=== PATIENT | female | born 1985 | race Caucasian/White ===

== ENCOUNTER 2017-08-02 20:30 | Emergency (ER) | payer MEDICAID ==
[~2017-08-02] VITALS: Ht 170.2 cm; Wt 88.5 kg
[2017-08-02 20:45] VITALS: BP 123/73
[2017-08-02] MEDS ORDERED: TETanus/Pertussis (Acell)/Diphther VAC/PF (Tdap-Adult) 0.5ml syringe IM ONE (20:55)
== END 2017-08-02 21:22 | disposition home or self-care (01) ==
LOC: ER 20:30
DX: S91.131A Puncture wound without foreign body of right great toe without damage to nail, initial encounter (principal); G43.909 Migraine, unspecified, not intractable, without status migrainosus; Z88.8 Allergy status to other drugs, medicaments and biological substances; W22.8XXA Striking against or struck by other objects, initial encounter; Y93.89 Activity, other specified; Y92.89 Other specified places as the place of occurrence of the external cause; Y99.8 Other external cause status
CPT/HCPCS: 90471; 90715; 99283

== ENCOUNTER 2018-01-01 14:43 | Emergency (ER) | payer MEDICAID ==
[~2018-01-01] VITALS: Ht 170.2 cm; Wt 86.1 kg
[2018-01-01 14:54] VITALS: BP 142/84
[2018-01-01] MEDS ORDERED: PENI500T2 PO (15:11)
== END 2018-01-01 15:20 | disposition home or self-care (01) ==
LOC: ER 14:43
DX: R68.84 Jaw pain (principal); K08.89 Other specified disorders of teeth and supporting structures; G43.909 Migraine, unspecified, not intractable, without status migrainosus; Z88.2 Allergy status to sulfonamides; Z79.899 Other long term (current) drug therapy
CPT/HCPCS: 99283

== ENCOUNTER 2018-11-24 08:53 | Emergency (ER) | payer MEDICAID ==
[~2018-11-24] VITALS: Ht 170.2 cm; Wt 92.3 kg
[2018-11-24 11:00] VITALS: BP 126/87
== END 2018-11-24 11:02 | disposition home or self-care (01) ==
LOC: ER 08:54
DX: R22.41 Localized swelling, mass and lump, right lower limb (principal); R06.02 Shortness of breath; Z88.8 Allergy status to other drugs, medicaments and biological substances
CPT/HCPCS: 93971; 99284

== ENCOUNTER 2018-12-01 11:32 | Emergency (ER) | payer MEDICAID ==
[~2018-12-01] VITALS: Ht 170.2 cm; Wt 92.0 kg
[2018-12-01 12:15] LABS: BASOPHILS % (AUTO) 0.3 % (0-1); EOSINOPHILS # (AUTO) 0.1 X10'3 (0-0.9); EOSINOPHILS % (AUTO) 1.8 % (0-6); HEMATOCRIT 44.2 % (35.0-45.0); HEMOGLOBIN 15.3 g/dl (12.0-16.0); LYMPHOCYTES # (AUTO) 1.9 X10'3 (1.1-4.8); LYMPHOCYTES % (AUTO) 25.8 % (21-51); MEAN CORPUSCULAR HEMOGLOBIN 30.8 PG (27.0-31.0); MEAN CORPUSCULAR HGB CONC 34.5 g/dL (33.0-36.5); MEAN CORPUSCULAR VOLUME 89.1 FL (78-98); MEAN PLATELET VOLUME 7.7 FL (7.4-10.4); MONOCYTES # (AUTO) 0.5 X10'3 (0-0.9); MONOCYTES % (AUTO) 7.2 % (2-12); NEUTROPHILS # (AUTO) 4.7 X10'3 (1.8-7.7); NEUTROPHILS % (AUTO) 64.9 % (42-75); PLATELET COUNT 189 X10'3 (140-440); RED BLOOD COUNT 4.97 X10'6 (4.20-5.60); RED CELL DISTRIBUTION WIDTH 13.1 % (11.5-14.5); WHITE BLOOD COUNT 7.3 X10'3 (4.5-11.0)
[2018-12-01 12:29] LABS: ALANINE AMINOTRANSFERASE 29 U/L (12-78); ALBUMIN 4.1 G/DL (3.4-5.0); ALBUMIN/GLOBULIN RATIO 1.1 (1.1-1.5); ALKALINE PHOSPHATASE 67 IU/L (46-116); ANION GAP 6 (8-16); ASPARTATE AMINO TRANSFERASE 7 U/L (10-37); BILIRUBIN,TOTAL 1.2 MG/DL (0.1-1.0); BLOOD UREA NITROGEN 9 MG/DL (7-18); BUN/CREATININE RATIO 11.7 (6.6-38.0); CHLORIDE 107 MMOL/L (99-107); CREATININE 0.77 MG/DL (0.40-0.90); GLUCOSE 86 MG/DL (70-104); PARTIAL THROMBOPLASTIN TIME 29 SECONDS (22-32); SODIUM 141 MMOL/L (135-145); TOTAL CARBON DIOXIDE 27.8 MMOL/L (24-32); TOTAL PROTEIN 7.8 G/DL (6.4-8.2); eGFR 87 ML/MIN
[2018-12-01 14:09] LABS: D-DIMER 0.48 MG/L FEU (0-0.50)
[2018-12-01 14:30] VITALS: BP 127/86
== END 2018-12-01 14:38 | disposition home or self-care (01) ==
LOC: ER 11:32
DX: R09.1 Pleurisy (principal); R05 Cough; R06.02 Shortness of breath; G43.909 Migraine, unspecified, not intractable, without status migrainosus; J45.909 Unspecified asthma, uncomplicated; M79.89 Other specified soft tissue disorders; Z88.8 Allergy status to other drugs, medicaments and biological substances
CPT/HCPCS: 36415; 71045; 80053; 84484; 85025; 85379; 85610; 85730; 93005; 99284

== ENCOUNTER 2019-12-29 18:55 | Emergency (ER) | payer MEDICAID ==
[~2019-12-29] VITALS: Ht 170.2 cm; Wt 93.3 kg
[2019-12-29 18:59] VITALS: BP 130/79
[2019-12-29] MEDS ORDERED: PENI250T2 PO (20:14)
== END 2019-12-29 20:23 | disposition home or self-care (01) ==
LOC: ER 18:56
DX: S00.502A Unspecified superficial injury of oral cavity, initial encounter (principal); G43.909 Migraine, unspecified, not intractable, without status migrainosus; Z88.8 Allergy status to other drugs, medicaments and biological substances; Z79.2 Long term (current) use of antibiotics; X58.XXXA Exposure to other specified factors, initial encounter; Y93.89 Activity, other specified; Y92.89 Other specified places as the place of occurrence of the external cause; Y99.8 Other external cause status
CPT/HCPCS: 99283

== ENCOUNTER 2021-09-02 08:17 | Emergency (ER) | payer MEDICAID ==
[~2021-09-02] VITALS: Ht 170.2 cm; Wt 85.0 kg
[2021-09-02 12:44] LABS: BASOPHILS % (AUTO) 0.3 % (0-1); EOSINOPHILS # (AUTO) 0.1 X10'3 (0-0.9); EOSINOPHILS % (AUTO) 1.3 % (0-6); HEMOGLOBIN 14.9 g/dl (12.0-16.0); LYMPHOCYTES # (AUTO) 1.9 X10'3 (1.1-4.8); LYMPHOCYTES % (AUTO) 20.9 % (21-51); MEAN CORPUSCULAR HEMOGLOBIN 30.5 PG (27.0-31.0); MEAN CORPUSCULAR HGB CONC 33.9 g/dL (33.0-36.5); MEAN CORPUSCULAR VOLUME 89.9 FL (78-98); MEAN PLATELET VOLUME 7.9 FL (7.4-10.4); MONOCYTES # (AUTO) 0.6 X10'3 (0-0.9); MONOCYTES % (AUTO) 6.7 % (2-12); NEUTROPHILS # (AUTO) 6.3 X10'3 (1.8-7.7); NEUTROPHILS % (AUTO) 70.8 % (42-75); PLATELET COUNT 238 X10'3 (140-440); RED BLOOD COUNT 4.89 X10'6 (4.20-5.60); WHITE BLOOD COUNT 8.9 X10'3 (4.5-11.0)
[2021-09-02 12:50] LABS: CLARITY,URINE SLIGHTLY CLOUDY (Clear); COLOR,URINE YELLOW (Yellow); GLUCOSE, URINE NEGATIVE (Neg); KETONES,URINE NEGATIVE (Neg); LEUKOCYTE ESTERASE ,URINE NEGATIVE (Neg); NITRITES, URINE NEGATIVE (Neg); OCCULT BLOOD,URINE SMALL (Neg); PH,URINE 6.5 (4.8-8.0); PROTEIN,URINE NEGATIVE (Neg)
[2021-09-02 12:51] LABS: URINE HCG NEGATIVE (NEG)
[2021-09-02 12:54] LABS: UA COLLECTION TYPE NON-SPECIFIED
[2021-09-02 13:00] LABS: ALANINE AMINOTRANSFERASE 20 U/L (12-78); ALBUMIN 3.9 G/DL (3.4-5.0); ALKALINE PHOSPHATASE 57 IU/L (46-116); ANION GAP 7 (8-16); ASPARTATE AMINO TRANSFERASE 15 U/L (10-37); BLOOD UREA NITROGEN 13 MG/DL (7-18); BUN/CREATININE RATIO 17.3 (6.6-38.0); CALCIUM 9.4 MG/DL (8.5-10.1); CHLORIDE 103 MMOL/L (99-107); CREATININE 0.75 MG/DL (0.40-0.90); GLUCOSE 95 MG/DL (70-104); LIPASE 74 U/L (73-393); POTASSIUM 3.8 MMOL/L (3.5-5.1); SODIUM 140 MMOL/L (135-145); TOTAL CARBON DIOXIDE 29.7 MMOL/L (24-32); TOTAL PROTEIN 7.8 G/DL (6.4-8.2); eGFR 88 ML/MIN
[2021-09-02] MEDS ORDERED: acetaminophen 325mg tablet PO ONE (13:35)
[2021-09-02] MEDS ORDERED: normal saline 1000ML IV soln IVB ONE (13:40)
[2021-09-02] MEDS ORDERED: normal saline 1000ml 1,000 ML IV ONE (13:40)
[2021-09-02 13:44] LABS: BACTERIA,URINE NONE SEEN /HPF (Neg); MUCUS STRANDS FEW /LPF (Neg); RBC,URINE 0-2 /HPF (0-2); SQUAMOUS EPITHELIAL CELL,UR MANY /LPF (FEW); WBC,URINE 0-4 /HPF (0-4)
[2021-09-02] MEDS ORDERED: IOHEXOL 300 MG/ML 30ML INFUS..BTL IV ONE (14:05)
[2021-09-02 15:02] VITALS: BP 122/79
[2021-09-02] MEDS ORDERED: HYDROcodone/acetaminophen 5mg/325mg tablet PO ONE (15:55)
[2021-09-02] MEDS ORDERED: HYDR-3964 PO (15:57)
== END 2021-09-02 16:40 | disposition home or self-care (01) ==
LOC: ER 08:18
DX: G89.18 Other acute postprocedural pain (principal); R10.9 Unspecified abdominal pain; G43.909 Migraine, unspecified, not intractable, without status migrainosus; Z88.2 Allergy status to sulfonamides
CPT/HCPCS: 36415; 74177; 80053; 81001; 81025; 83690; 85025; 96360; 99285; J7030

== ENCOUNTER 2022-11-12 05:37 | Emergency (ER) | payer MEDICAID ==
[~2022-11-12] VITALS: Ht 172.7 cm; Wt 99.8 kg
[~2022-11-12 05:37] MED LIST: HYDR-3964 PO
[2022-11-12 05:40] VITALS: BP 158/86; PULSE 83; TEMP 97.6; O2SAT 97
[2022-11-12] MEDS ORDERED: acetaminophen 325mg tablet PO ONE (06:35)
[2022-11-12] MEDS ORDERED: ketorolac trometh. 30mg/ml inj. IM ONE (06:35)
[2022-11-12] MEDS ORDERED: cloNIDine 0.1 mg tablet PO ONE (06:35)
[2022-11-12 06:40] VITALS: RESP 16
== END 2022-11-12 07:36 | disposition home or self-care (01) ==
LOC: ER 05:37
DX: G43.909 Migraine, unspecified, not intractable, without status migrainosus (principal); Z88.8 Allergy status to other drugs, medicaments and biological substances; Z79.899 Other long term (current) drug therapy
CPT/HCPCS: 96372; 99283; J1885

== ENCOUNTER 2023-01-22 10:37 | Emergency (ER) | payer MEDICAID ==
[~2023-01-22] VITALS: Ht 170.2 cm; Wt 90.2 kg
[~2023-01-22 10:37] MED LIST changes: +FAMO-128 PO
[2023-01-22] MEDS ORDERED: AMOX-580 PO (11:47)
[2023-01-22] MEDS ORDERED: HYDR-3973 PO (11:47)
[2023-01-22 11:59] VITALS: BP 156/95; PULSE 80; RESP 16; TEMP 98.3; O2SAT 93
--- NOTE | 2023-01-22 13:53 | NUR ---
I agree with the assessment per Nash Sanchez LVN
== END 2023-01-22 12:04 | disposition home or self-care (01) ==
LOC: ER 10:39
DX: K04.7 Periapical abscess without sinus (principal); G43.909 Migraine, unspecified, not intractable, without status migrainosus; Z88.1 Allergy status to other antibiotic agents; Z88.8 Allergy status to other drugs, medicaments and biological substances; Z79.899 Other long term (current) drug therapy; Z98.51 Tubal ligation status
CPT/HCPCS: 99283

== ENCOUNTER 2023-03-08 22:08 | Emergency (ER) | payer MEDICAID ==
[~2023-03-08] VITALS: Ht 170.2 cm; Wt 97.8 kg
[2023-03-08 22:13] VITALS: RESP 15; TEMP 98.2
[2023-03-08 22:36] LABS: BILIRUBIN,URINE NEGATIVE (Neg); CLARITY,URINE SLIGHTLY CLOUDY (Clear); COLOR,URINE YELLOW (Yellow); GLUCOSE, URINE NEGATIVE (Neg); KETONES,URINE NEGATIVE (Neg); LEUKOCYTE ESTERASE ,URINE MODERATE (Neg); NITRITES, URINE NEGATIVE (Neg); OCCULT BLOOD,URINE NEGATIVE (Neg); PROTEIN,URINE NEGATIVE (Neg); URINE HCG NEGATIVE (NEG); UROBILINOGEN,URINE 0.2 E.U/dL (0.2-1.0)
[2023-03-08 22:48] LABS: UA COLLECTION TYPE CLN CATCH MIDSTREAM
[2023-03-08 22:49] LABS: BACTERIA,URINE 1+ /HPF (Neg); SQUAMOUS EPITHELIAL CELL,UR MODERATE /LPF (FEW)
[2023-03-08 22:50] LABS: MUCUS STRANDS FEW /LPF (Neg); RENAL CELLS, URINE FEW /HPF; TRANSITIONAL EPI CELLS,URINE FEW /HPF
[2023-03-08 23:14] LABS: MEAN PLATELET VOLUME 7.8 FL (7.4-10.4); WHITE BLOOD COUNT 8.7 X10'3 (4.5-11.0)
[2023-03-08 23:16] LABS: BASOPHILS % (AUTO) 0.4 % (0-1); EOSINOPHILS # (AUTO) 0.2 X10'3 (0-0.9); EOSINOPHILS % (AUTO) 2.2 % (0-6); HEMATOCRIT 42.5 % (35.0-45.0); HEMOGLOBIN 14.5 g/dl (12.0-16.0); LYMPHOCYTES # (AUTO) 2.3 X10'3 (1.1-4.8); LYMPHOCYTES % (AUTO) 26.3 % (21-51); MEAN CORPUSCULAR HEMOGLOBIN 30.7 PG (27.0-31.0); MEAN CORPUSCULAR HGB CONC 34.1 g/dL (33.0-36.5); MONOCYTES # (AUTO) 0.7 X10'3 (0-0.9); MONOCYTES % (AUTO) 8.2 % (2-12); NEUTROPHILS # (AUTO) 5.4 X10'3 (1.8-7.7); NEUTROPHILS % (AUTO) 62.9 % (42-75); PLATELET COUNT 229 X10'3 (140-440); RED BLOOD COUNT 4.72 X10'6 (4.20-5.60); RED CELL DISTRIBUTION WIDTH 13.2 % (11.5-14.5)
[2023-03-08 23:43] LABS: ALANINE AMINOTRANSFERASE 23 U/L (12-78); ALBUMIN 3.8 G/DL (3.4-5.0); ALBUMIN/GLOBULIN RATIO 1.2 (1.1-1.5); ALKALINE PHOSPHATASE 68 IU/L (46-116); ANION GAP 10 (8-16); ASPARTATE AMINO TRANSFERASE 14 U/L (10-37); BILIRUBIN,TOTAL 0.7 MG/DL (0.1-1.0); BLOOD UREA NITROGEN 15 MG/DL (7-18); BUN/CREATININE RATIO 20.8 (10.0-20.0); CALCIUM 9.2 MG/DL (8.5-10.1); CHLORIDE 102 MMOL/L (99-107); CREATININE 0.72 MG/DL (0.40-0.90); GLUCOSE 105 MG/DL (70-104); POTASSIUM 3.5 MMOL/L (3.5-5.1); SODIUM 138 MMOL/L (135-145); TOTAL CARBON DIOXIDE 26.1 MMOL/L (24-32); TOTAL PROTEIN 7.1 G/DL (6.4-8.2); eCRCL 104 ML/MIN; eGFR > 90 ML/MIN
[2023-03-09] MEDS ORDERED: metoclopramide 10mg tablet PO ONE (01:45)
[2023-03-09] MEDS ORDERED: HYDROcodone/acetaminophen 10/325mg tab PO ONE (01:45)
[2023-03-09] MEDS ORDERED: ketorolac trometh inj. 60 MG/2 ML VIAL IM ONE (01:45)
[2023-03-09] MEDS ORDERED: ondansetron 4mg rapidly disintigrating tab PO ONE (01:45)
[2023-03-09] MEDS ORDERED: METO5TAB85 PO (01:54)
[2023-03-09] MEDS ORDERED: ASPI1TAB9 PO (01:54)
[2023-03-09] MEDS ORDERED: HYDROmorphone inj. 0.5 MG/0.5 ML DISP.SYRIN IV ONE (02:00)
[2023-03-09] MEDS ORDERED: ondansetron/PF 4mg/2ml inj IV ONE (02:00)
[2023-03-09] MEDS ORDERED: acetaminophen 325mg tablet PO ONE (02:00)
[2023-03-09] MEDS ORDERED: ketorolac trometh. 30mg/ml inj. IV ONE (02:00)
[2023-03-09] MEDS ORDERED: normal saline 1000ml 1,000 ML IV SCH (02:00)
[2023-03-09 02:53] VITALS: BP 127/79; PULSE 72; O2SAT 98
== END 2023-03-09 02:55 | disposition home or self-care (01) ==
LOC: ER 22:09
DX: G43.909 Migraine, unspecified, not intractable, without status migrainosus (principal)
CPT/HCPCS: 36415; 80053; 81001; 81025; 82948; 85025; 87088; 96361; 96374; 96375; 99284; J1170; J1885; J2405; J7030